=== PATIENT | female | born 1960 | race Caucasian/White ===

== ENCOUNTER 2017-08-30 10:45 | Outpatient (CLI) | payer OTHER | END 2017-08-30 10:46 | disposition home or self-care (01) | LOC: BICMAMMO 10:45 | PROVIDERS: ATTEND Family Medicine | DX: Z12.31 Encounter for screening mammogram for malignant neoplasm of breast (principal); Z80.3 Family history of malignant neoplasm of breast; Z85.42 Personal history of malignant neoplasm of other parts of uterus | CPT/HCPCS: 77063; 77067 ==

== ENCOUNTER 2019-06-26 14:48 | Outpatient (CLI) | payer BC ==
--- NOTE | 2019-06-26 15:21 | RAD ---
PA AND LATERAL OF THE CHEST: 06/26/19 INDICATION: Intermittent cough. COMPARISON: None. FINDINGS: The lungs are clear. Heart size is normal. No acute osseous abnormality is evident. Cholecystectomy c lips are seen within the right upper quadrant. IMPRESSION: No acute cardiopulmonary abnormality. POS: [facility]
== END 2019-06-26 14:49 | disposition home or self-care (01) ==
LOC: BICRAD 14:48
PROVIDERS: ATTEND Family Medicine
DX: R05 Cough (principal)
CPT/HCPCS: 71046

== ENCOUNTER 2019-08-24 09:10 | Outpatient (CLI) | payer BC ==
--- NOTE | 2019-08-24 09:26 | RAD ---
EXAM: Two views chest PROVIDED CLINICAL HISTORY: Dyspnea COMPARISON: 06/26/2019 FINDINGS: Cardiac silhouette and pulmonary vasculature are within normal limits. The lungs are clear. The osse ous structures have a normal appearance. Surgical clips again overlie the right upper quadrant. Chest is stable compared to prior exam. IMPRESSION: No acute cardiopulmonary process.
== END 2019-08-24 09:11 | disposition home or self-care (01) ==
LOC: BICRAD 09:10
PROVIDERS: ATTEND Internal Medicine Critical Care Medicine
DX: R06.00 Dyspnea, unspecified (principal)
CPT/HCPCS: 71046

== ENCOUNTER → 2024-01-22 | Outpatient (CLI) | payer BC | LOC: SCSRAD 11:46 | PROVIDERS: ATTEND Family Medicine | DX: R05.9 Cough, unspecified (principal) | CPT/HCPCS: 71046 ==